=== PATIENT | male | born 1985 | race African-American/Black ===

== ENCOUNTER 2022-03-28 10:44 | Day surgery (SDC) | payer BC ==
[~2022-03-28] VITALS: Ht 177.8 cm; Wt 119.5 kg
[2022-03-28] VITALS (8 sets, daily range): BP systolic 126–141; BP diastolic 65–85; PULSE 63–90; TEMP 97.2–98.5
[2022-03-28] MEDS ORDERED: TYLENOL 500MG500 MG PO (11:49)
[2022-03-28] MEDS ORDERED: ALLEGRA ALLERG180 MG PO (11:49)
--- NOTE | 2022-03-28 15:05 | NUR ---
1505 PATIENT RETURNS TO ROOM 3 VIA CART. PATIENT IS ALERT AND ORIENTED. RESPIRATIONS EVEN AND UNLABORED. PATIENT BROUGHT TO DC ON 2LPM VIA NC. NO C/O PAIN. VITAL SIGNS OBTAINED. 4 LAP SITES TO ABDOMEN, ALL COVERED WITH BANDAIDS, ALL CDI. 1505 PATIENT REQUESTED WATER AND COFFEE. NO DIFFICULTIES SWALLOWING. 1525 DISCUSSED DISCHARGE INSTRUCTIONS WITH PATIENT. PATIENT VERBALIZED UNDERSTANDING. 1530 DISCONTINUED IV FROM LEFT FOREARM WITH NO DIFFICULTIES. 1535 PATIENT DRESSES SELF AND ATTEMPTS TO URINATE. PATIENT STATES THAT HE IS UNABLE TO URINATE AT THIS TIME. THIS NURSE ENCOURAGED PATIENT TO GO TO THE ER TONIGHT IF HE'S UNABLE TO URINATE BY MIDNIGHT. PATIENT VERBALIZED UNDERSTANDING. 1600 PATIENT DISCHARGED FROM UNIT VIA WHEELCHAIR.
[2022-03-28] MEDS ORDERED: NORCO 325 MG-51 TAB PO (15:23)
[2022-03-28] MEDS ORDERED: MOTRIN 600600 MG/TAB PO (15:24)
--- NOTE | 2022-03-28 15:40 | NUR ---
1540 PATIENT RETURNS TO ROOM 6 VIA CART. PATIENT IS ALERT AND ORIENTED. PATIENT'S FIANCE IS IN ROOM. RESPIRATIONS EVEN AND UNLABORED. VITAL SIGNS OBTAINED. 3 INCISION SITES TO ABDOMEN HELD TOGETHER WITH GLUE, ALL CDI. NO C/O PAIN AT THIS TIME. PATIENT IS CURRENTLY CHEWING ON ICE CHIPS AND DOES NOT WANT ANYTHING ELSE AT THIS TIME. 1600 THIS NURSE REVIEWED DISCHARGE INSTRUCTIONS WITH PATIENT AND PATIENT FIANCE. BOTH VERBALIZED UNDERSTANDING. 1605 DISCONTINUED IV FROM LEFT HAND WITH NO DIFFICULTIES. 1610 PATIENT IS GETTING DRESSED AND VOIDED INDEPENDENTLY. 1620 PATIENT DISCHARGES FROM UNIT VIA WHEELCHAIR.
== END 2022-03-28 16:30 | disposition home or self-care (01) ==
LOC: SDCO 10:44
DX: K40.90 Unilateral inguinal hernia, without obstruction or gangrene, not specified as recurrent (principal)
CPT/HCPCS: C1781; J0690; J1100; J1885; J2405; J2704; J3010; J7120